=== PATIENT | female | born 1975 | race Caucasian/White ===

== ENCOUNTER 2022-03-01 21:03 | Emergency (ER) | payer SELFPAY ==
[~2022-03-01] VITALS: Ht 175.3 cm; Wt 101.8 kg
[2022-03-01 21:55] VITALS: BP 181/108
[2022-03-01] MEDS ORDERED: CEPHALEXIN 250 MG CAPSULE. PO STA (22:41)
[2022-03-01] MEDS ORDERED: HYDROcodone/APAP 5/325MG 1 TAB TABLET PO ONE (22:45)
--- NOTE | 2022-03-01 23:26 | RAD ---
PQRS Compliance Statement: One or more of the following individualized dose reduction techniques were utilized for this examinat ion: 1. Automated exposure control 2. Adjustment of the mA and/or kV according to patient size 3. Use of iterative reconstruction technique CT LUMBAR SPINE WO Clinical Indication: Reason: Fall, low back pain, history of L4-L5 fusion / Spl. Instructions: / His tory: Comparison: MR lumbar spine without contrast August 10, 2021, [facility]. The TECHNIQUE: Helical CT imaging of the lumbar spine is performed without IV contrast. Findings: There is no acute fracture or malalignment of the lumbar spine. There is disc space narrowing and vac uum disc phenomenon and reactive endplate changes of L5/S1. The other disc spaces are maintained. The re is mild degenerative endplate spurring throughout the lumbar spine. The sacroiliac joints are symm etric. There is minimal right convexity lumbar scoliosis centered at L2. L4/L5: There is broad-based posterior disc osteophyte complex and facet hypertrophy and mild ligament um flavum redundancy. There is mild central canal stenosis. There is narrowing of the lateral recesse s. There is mild bilateral neural foraminal narrowing. L5/S1: There is posterior disc osteophyte complex. There is facet hypertrophy and ligamentum flavum r edundancy. Findings combine to produce mild to moderate central canal stenosis. There is mild left an d moderate right neural foraminal narrowing. Retroaortic left renal vein. The uterus is anteverted. Ovaries are similar in size. The visualized ur inary bladder is unremarkable, incompletely imaged. No pelvic free fluid is identified, inferior most pelvis is not imaged. IMPRESSION: 1. There is no acute fracture or malalignment of the lumbar spine. 2. There is degenerative spondylosis of L4/L5 and L5/S1. Electronically signed by: Dain Pires MD (03/01/2022 11:23 PM) [facility]
--- NOTE | 2022-03-01 23:32 | PHYS DOC ---
Past Medical History Additional Past Medical Histor: 3 CARDIAC STENTS, 3 STERIODS INJECTIONS IN BACK Past Surgical History: Cholecystectomy, Tubal ligation General Adult EDM: Chief Complaint: BACK PAIN OR INJURY HPI: HPI: Patient is a 47-year-old female who presents to the emergency department complaining of low back pain after a stumble and fall 4 days ago, patient also is concerned about a laceration to her left heel. Patient states she is not sure but believes her heel was lacerated on a protruding nail. Patient states she is diabetic and she worries her left heel may become infected because of this. Patient reports she has a fusion of her lumbar spine and worries she may have injured her low back. Patient reports she took Tylenol without any help and pain yesterday. Patient denies allergies to medications, states she has not tried nonpharmacological pain relief methods. Patient denies loss of bowel or bladder continence, denies history of IV drug use, immunosuppression, cancers, fever or chills, denies numbness or tingling to her buttocks or vaginal area, denies bladder retention. Patient denies other physical complaints or physical concerns. Review of Systems: Review of Systems: 14 body systems of review of systems have been reviewed. See HPI for pertinent positives and negative responses, otherwise all other systems are negative, n onpertinent or noncontributory. Constitutional: Negative except as outlined in HPI above. Skin: Negative except as outlined in HPI above. Eyes: Negative except as outlined in HPI above. HENT: Negative except as outlined in HPI above. Respiratory: Negative except as outlined in HPI above. Cardiovascular: Negative except as outlined in HPI above. GI: Negative except as outlined in HPI above. : Negative except as outlined in HPI above. Musculoskeletal: Negative except as outlined in HPI above. Integument: Negative except as outlined in HPI above. Neurologic: Negative except as outlined in HPI above. Endocrine: Negative except as outlined in HPI above. Lymphatic: Negative except as outlined in HPI above. Psychiatric: Negative except as outlined in HPI above. Heart Score: C/O Chest Pain: No Risk Factors: Risk Factors: DM, Current or recent (<one month) smoker, HTN, HLP, family history of CAD, obesity. Risk Scores: Score 0 - 3: 2.5% MACE over next 6 weeks - Discharge Home Score 4 - 6: 20.3% MACE over next 6 weeks - Admit for Clinical Observation Score 7 - 10: 72.7% MACE over next 6 weeks - Early Invasive Strategies Current Medications: Current Medications Medications (Trade) Dose Ordered Sig/Glen Start Time Stop Time Status Last Admin Dose Admin Acetaminophen/ Hydrocodone Bitart (Lortab 5/325) 2 tab 1X ONCE 03/01/22 22:45 03/01/22 22:46 DC 03/01/22 23:09 2 TAB Cephalexin HCl (Keflex) 500 mg 1X STAT 03/01/22 22:41 03/01/22 22:46 DC 03/01/22 23:08 500 MG Allergies: Allergies: Allergies Coded Allergies Type Severity Reaction Last Updated Verified lisinopril Allergy Unknown 03/01/22 Yes prochlorperazine Allergy Unknown 03/01/22 Yes Physical Exam: PE: Constitutional: Well developed, well nourished, no acute distress, non-toxic appearance. 47-year-old female in no apparent distress. HENT: Normocephalic, atraumatic. Eyes: Conjunctiva normal, no discharge. Neck: Normal range of motion, no stridor. Cardiovascular: No cyanosis appreciated, distal cap refill less than 2 seconds. Lungs & Thorax: Patient is in no respiratory distress, no audible adventitious lung sounds appreciated. Abdomen: Nontender, no abnormalities noted. Skin: Warm, dry, no erythema, no rash. There is a 2.5 cm well-healing laceration to the left heel, there is no bleeding, no purulence appreciated, mild erythema around the laceration. Back: There is tenderness to palpation over L4-L5 bony prominences, no left or right-sided lumbar musculoskeletal pain, there is no crepitus or step-offs appreciated no bruising or skin discoloration appreciated, no deformities. Extremities: No tenderness, no cyanosis, no clubbing, ROM intact, no edema. 5/5 motor strength of hip flexion, knee flexion/extension/adduction, plantar/dorsiflexion at ankle, dorsiflexion of the toes bilaterally. Neurologic: Alert and oriented X 3, normal motor function, normal sensory function, no focal deficits noted. Psychologic: Affect normal, judgement normal, mood normal. Current Patient Data: Vital Signs: Vital Signs Date Time Temp Pulse Resp B/P (MAP) Pulse Ox O2 Delivery O2 Flow Rate FiO2 5/11/22 23:09 18 100 Room Air 03/01/22 21:55 98.4 101 181/108 (132) 98.4 EKG: EKG: [] Radiology/Procedures: Radiology/Procedures: REASON: Fall, low back pain, history of L4-L5 fusion PROCEDURE: CT LUMBAR SPINE WO CONTRAST PQRS Compliance Statement: One or more of the following individualized dose reduction techniques were utilized for this examination: 1. Automated exposure control 2. Adjustment of the mA and/or kV according to patient size 3. Use of iterative reconstruction technique CT LUMBAR SPINE WO Clinical Indication: Reason: Fall, low back pain, history of L4-L5 fusion / Spl. Instructions: / History: Comparison: MR lumbar spine without contrast August 10, 2021, [facility]. The TECHNIQUE: Helical CT imaging of the lumbar spine is performed without IV contrast. Findings: There is no acute fracture or malalignment of the lumbar spine. There is disc space narrowing and vacuum disc phenomenon and reactive endplate changes of L5/S1. The other disc spaces are maintained. There is mild degenerative endplate spurring throughout the lumbar spine. The sacroiliac joints are symmetric. There is minimal right convexity lumbar scoliosis centered at L2. L4/L5: There is broad-based posterior disc osteophyte complex and facet hypertrophy and mild ligamentum flavum redundancy. There is mild central canal stenosis. There is narrowing of the lateral recesses. There is mild bilateral neural foraminal narrowing. L5/S1: There is posterior disc osteophyte complex. There is facet hypertrophy and ligamentum flavum redundancy. Findings combine to produce mild to moderate central canal stenosis. There is mild left and moderate right neural foraminal narrowing. Retroaortic left renal vein. The uterus is anteverted. Ovaries are similar in size. The visualized urinary bladder is unremarkable, incompletely imaged. No pelvic free fluid is identified, inferior most pelvis is not imaged. IMPRESSION: 1. There is no acute fracture or malalignment of the lumbar spine. 2. There is degenerative spondylosis of L4/L5 and L5/S1. Electronically signed by: Dain Pires MD (03/01/2022 11:23 PM) [facility] Course & Med Decision Making: Course & Med Decision Making Pertinent Labs and Imaging studies reviewed. (See chart for details) 47-year-old female, vital signs reviewed, presents emergency department concerning low back pain and concerns of left heel injury after a slip and fall 2 days 4 days ago. Physical examination concerning for possible bony injury of the lumbar spine related to patient's explanation of events. The heel laceration from 4 days ago is healing however related to patient's history of diabetes we will start on Keflex regimen, discussed with patient continue to cleanse daily and perform wound care at home. Will bring patient's immunization for tetanus up-to-date today with Tdap. Heel wound clean and dressed with antibiotic ointment applied by ED nursing staff, CT of lumbar spine nonconcerning, discussed findings with patient, reviewed antibiotic regimen and side effects, bringing tetanus up-to-date, home care instructions, return to ER precautions and concerns, strict follow-up with primary care soon, patient gave verbal understanding of and is amenable to ED discharge planning Discussed with the patient all findings and diagnostic testing as well as the need to follow-up with their primary care provider for further evaluation and treatment or return to the ED if any new or worsening symptoms. Strict return precautions were also discussed at length, the patient voiced understanding and agreement with the discharge planning. The patient was nontoxic in appearance, in no apparent distress, and hemodynamically stable at the time of disposition. DragInformative Disclaimer: Mobisante Disclaimer: This electronic medical record was generated, in whole or in part, using a voice recognition dictation system. Departure Departure Impression: Primary Impression: Low back pain Qualified Codes: M54.50 - Low back pain, unspecified Additional Impressions: Laceration of left heel Qualified Codes: S91.312A - Laceration without foreign body, left foot, initial encounter Need for Tdap vaccination Disposition: 01 HOME / SELF CARE / HOMELESS Condition: GOOD Referrals: NON,STAFF (PCP) Patient Instructions: Back Pain, Adult, Laceration, Old, Not Sutured Additional Instructions: You were seen today in the emergency department for laceration to the left heel and low back pain after a fall from [address] scan was done today that did not show any concerning findings of broken bones of your lumbar spine, however as we discussed I did disclose that there are degenerative changes to your L4-L5 and L5-S1, you have stated you are aware of these from previous examinations in the past. Please continue to perform good wound care of your left heel. As we discussed I am starting you on a antibiotic regimen to prevent any infectious process. Please follow-up with your primary care physician for any further healthcare needs. Thank you for visiting our Emergency Department. It was a pleasure taking care of you today in the emergency department and we appreciate you trusting us with your care. If any additional problems come up don't hesitate to return to visit us. Please follow up with your primary care provider so they can plan additional care if needed and know about the problem that you had. If symptoms worsen come back to the Emergency Department. Any concerning symptoms that start such as chest pain, shortness of air, weakness or numbness on one side of the body, running high fevers or any other concerning symptoms return to the ER. Your tetanus immunization was brought up-to-date today in the emergency department with a medication called Tdap. Please update your immunization re cords accordingly. [facility] [address] [place] [address] [facility] [address] [place] [address] [facility] [address] [facility] [place] [address] [facility] [address] [place] [address] [facility] [address] [place] [address] [facility] [address] [place] [address] [facility] [address] [place] [address] [facility] [address] [place] [address] [facility] [address] [place] [address] [facility] [address] [place] [address] Scripts Ibuprofen (IBUPROFEN) 600 Mg Tablet 600 MG PO PRN Q6HRS PRN for INFLAMMATION, #30 TAB 0 Refills Prov: COLLEEN PYLE [employer] 03/02/22 Cyclobenzaprine Hcl (CYCLOBENZAPRINE HCL) 10 Mg Tablet 10 MG PO TID for back pains, #15 TAB 0 Refills Prov: COLLEEN PYLE APRN 03/02/22 Cephalexin (KEFLEX) 500 Mg Capsule 1 CAP PO QID for heel laceration for 7 Days, #28 CAP 0 Refills Prov: COLLEEN PYLE APRN 03/02/22 COLLEEN PYLE APRN March 01, 2022 23:32
[2022-03-02] MEDS ORDERED: NEOMY/BACITR/POLYMYXIN OINT PACKET. TP ONE
[2022-03-02] MEDS ORDERED: DIPHTH,PERTUSS(ACELL),TET TOX 0.5 ML DISP.SYRIN. VAX IM ONE
[2022-03-02] MEDS ORDERED: CYCL10TA19 PO (00:11)
[2022-03-02] MEDS ORDERED: IBUP-1007 PO (00:11)
[2022-03-02] MEDS ORDERED: CEPH500C PO (00:11)
== END 2022-03-02 00:25 | disposition home or self-care (01) ==
LOC: ER 21:03
DX: S91.312A Laceration without foreign body, left foot, initial encounter (principal); M54.50 Low back pain, unspecified; E11.9 Type 2 diabetes mellitus without complications; Z95.5 Presence of coronary angioplasty implant and graft; Z90.49 Acquired absence of other specified parts of digestive tract; Z98.51 Tubal ligation status; W18.39XA Other fall on same level, initial encounter; Y93.89 Activity, other specified; Y92.89 Other specified places as the place of occurrence of the external cause; Y99.8 Other external cause status
CPT/HCPCS: 72131; 90471; 90715; 99284-25